=== PATIENT | female | born 1945 | race Caucasian/White ===

== ENCOUNTER 2017-01-25 19:56 | Inpatient (IN) | payer MEDICARE ==
[~2017-01-25] VITALS: Ht 167.6 cm; Wt 87.5 kg
--- NOTE | 2017-01-26 02:34 | ER ---
ADMIT: 01/25/2017 RM/LOC: 404 [facility] MR#: [id number] [address] [address] RAYA [address] [place] [address] [place] [address] Emergency Room Report SEX: F AGE: 71 : 1945 DATE: 01/25/2017 HISTORY OF PRESENT ILLNESS: The patient is a 71-year-old female, been battling chronic UTIs with multiple rounds of antibiotics for the past 30 days, just finished Cipro, continues to have urinary urgency, dysuria, and bilateral flank pain, left greater than right. Denies any nausea, vomiting, or hematuria. Prior history of multiple rounds of kidney stones with manipulations by Dr. Abdalla most recently. PAST MEDICAL HISTORY: ILLNESSES: Hypertension, kidney stones, chronic UTIs, depression, asthma, DJD, and peripheral vascular disease. OPERATIONS: Appendectomy, left carotid endarterectomy, bilateral total hip arthroplasties, kidney stones, and recent lumbar decompression for spinal stenosis. ALLERGIES: NONE. MEDICATIONS: None. SOCIAL HISTORY: . Nonsmoker. Nondrinker. No illicit drugs. FAMILY HISTORY: Negative per chart review. REVIEW OF SYSTEMS: Most recent urine culture on December 29, 2016, E. coli sensitive to everything. Complaining of bilateral anterior thigh pain since her most recent lumbar decompression for spinal stenosis followed closely by Orthopedics. Otherwise, negative for all other systems, illnesses, or operations. PHYSICAL EXAMINATION: VITAL SIGNS: Temp 100.2, pulse 104, respirations 18, BP 147/48, and SaO2 of 93% on room air. GENERAL: Nontoxic, non-diaphoretic without jaundice or icterus. HEENT: Normocephalic. No evidence of epistaxis, rhinorrhea, or otorrhea. NECK: Supple without lymphadenopathy or thyromegaly. CHEST: Clear. Breath sounds equal without rales, rhonchi, or wheeze. HEART: Regular rate and rhythm without murmur, gallop, or edema. ABDOMEN: Soft, nontender, nondistended without mass or megaly. Bowel sounds hypoactive. BACK: No CVA tenderness. EXTREMITIES: No evidence of Homans sign, synovitis, or dermatitis. NEURO: EOMI, PERRLA. No evidence of drift, dysarthria, or ataxia. MEDICAL DECISION MAKING: CT renal shows large left renal pelvis stone consistent with ball valve effect, minimal dilatation, no distal ureteral stones. Chest x-ray, no acute findings. WBC 13.3 with left shift. CRP 2.96. Lactic 2.1. Creatinine 1.2. Potassium 3.4. UA; 3+ blood and leukocyte esterase, 1385 wbc's with clumps, 239 rbc's. Troponin 0.091, magnesium 1.7, ADMIT: 01/25/2017 RM/LOC: 404 [facility] MR#: [id number] [address] [place] [address] RAYA JOHN [address] [place] [address] Emergency Room Report SEX: F AGE: 71 : 1945 phosphorus 1.2. Discussed case with Dr. Clifford, who agrees with Rocephin 2 g IV piggyback. EKG shows sinus rhythm without ST-T or Q-wave change. DIAGNOSES: 1. Left renal pelvis kidney stone associated with chronic urinary tract infection. 2. Recent lumbar decompression for spinal stenosis. 3. Degenerative joint disease status post bilateral total hip arthroplasties with chronic anterior thigh pain. 4. Peripheral vascular disease, status post left carotid endarterectomy. RECOMMENDATION: Admit inpatient telemetry for Dr. Clifford. ADMISSION/DISCHARGE CONDITION: Stable. The patient is a full code. Landen Lozano MD/ segun JOB #: [id number] CC: Adriana Ovalle MD, Attending Physician Adriana Ovalle MD, Family Physician Maxime Clifford MD
--- NOTE | 2017-01-26 15:44 | HP ---
ADMIT: 01/25/2017 RM/LOC: 404 [facility] MR#: [id number] [address] [address] SANDRA JOHN [address] [place] [address] [place] [address] History and Physical SEX: F AGE: 71 : 1945 DATE OF SERVICE: 01/25/2017 CHIEF COMPLAINT AND HISTORY OF PRESENT ILLNESS: Sandra presented to the emergency room last night with what sounds like chills. Also, she had a fever at home of 102. Also some burning, urgency, and some left-sided back pain. She has been fighting the back pain for some time, and she frankly thought it had some to do with her chronic back pain from her lumbar spinal stenosis. However, she has also been battling with urinary tract infections at [facility], last being treated with Cipro after in-office culture grew E. coli sensitive to Cipro in late December. She has had apparently several UTIs treated both by our office and previously by Dr. Gilmore. In the emergency room, she was found to have an elevated white count. For the back pain, they ordered a CT scan that showed a large renal pelvis calculus and what appeared to be some evidence of left pyelonephritis. Her urine was obviously infected. Although she was not in any visible respiratory distress, she has been having more cough in last couple of weeks which is dry. She has not had a cold. Her x- ray showed some atelectasis versus early infiltrate in the left base. Since admission, she has also had elevated lactate acid and elevated procalcitonin. Blood cultures and urine cultures are pending. PAST MEDICAL HISTORY: She has been new to our group since transferring care from Dr. Gilmore's office. Known chronic medical conditions include hypertension, obstructive sleep apnea, asthma, lumbar spinal stenosis, prior TIA, prior nephroureterolithiasis requiring multiple procedures, acid reflux, and vitamin B12 deficiency. OPERATIONS: She has had appendectomy, hemorrhoidectomy, bilateral total hip arthroplasties, carotid endarterectomy, multiple urologic procedures for recurrent stone disease, and recent lumbar decompression procedure because of her spinal stenosis. FAMILY HISTORY: Positive for coronary artery disease, breast cancer, diabetes, hypertension in various first-degree relatives. SOCIAL HISTORY: Smoker who quit over 25 years ago. No alcohol. She is , lives with her , employment status unknown. ALLERGIES: NONE. MEDICATIONS: Uncertain of her dosages but she is on: 1. Norvasc. 2. Zyrtec. 3. Singulair. 4. Prilosec. 5. Zoloft. 6. Vitamin B12. 7. Recent antibiotics either Bactrim or Cipro. REVIEW OF SYSTEMS: CONSTITUTIONAL: No chills and fever. ADMIT: 01/25/2017 RM/LOC: 404 [facility] MR#: [id number] [address] [address] SANDRA JOHN [address] [place] [address] History and Physical SEX: F AGE: 71 : 1945 GI: Nausea without vomiting. : As in the above history. CV: She will get occasional chest pain with activity, but she did have a stress test earlier this year ahead of her lumbar surgery and it was fine by her report. RESPIRATORY: Gets short of breath with exertion. She has a dry cough. She has sleep apnea and wears CPAP nightly. ENT: No acute complaints. She wears dentures. EYES: No acute complaints. PSYCH: Chronic depression unchanged. NEURO: She has some leg numbness from her spinal stenosis. Otherwise negative. HEMATOLOGIC: No history of bleeding requiring transfusion, and no history of blood clots. PHYSICAL EXAMINATION: GENERAL: She is a pleasant alert female currently appears comfortable in no acute distress. VITAL SIGNS: Most recently, temp 96.9, pulse 66, respirations 17, BP 116/58, O2 96% sat. She is wearing oxygen at low flow rate. HEENT: She is edentulous. Oral mucous membranes are moist. No nasal discharge. Hearing satisfactory. Pupils equal, reactive to light. Sclerae are not icteric. NECK: No masses or tenderness. Carotid endarterectomy scar on the left. No venous distention. No thyromegaly. HEART: Regular rhythm. I do not hear a murmur. LUNGS: Some scattered rhonchi. Decreased breath sounds in the left posterior, clear anteriorly. BREASTS: Not examined. ABDOMEN: Nontender. No masses felt, no guarding, no rebound, no organomegaly. PELVIC/RECTAL: Not performed. EXTREMITIES: Upper extremities grossly normal. Lower extremities, arthritic changes in her knees. No significant edema in her lower extremities. Lower extremities are warm to touch. SKIN: No rashes. NEURO: Grossly intact. PSYCH: She is not overtly anxious or depressed. IMPRESSION: 1. Acute sepsis. 2. Urinary tract infection with left pyelonephritis. 3. Large left renal pelvic calculus. Certainly could be the nidus of her recurrent infections. 4. Left lower lobe atelectasis less likely acute pneumonia. 5. Mild renal insufficiency acute versus chronic. 6. Mild increased troponin likely secondary, but we will monitor. 7. Chronic hypertension. 8. Chronic asthma. ADMIT: 01/25/2017 RM/LOC: 404 [facility] MR#: [id number] [facility] [address] [address] SANDRA JOHN [address] [place] [address] History and Physical SEX: F AGE: 71 : 1945 9. Obstructive sleep apnea. 10.Lumbar spinal stenosis. 11.Acid reflux. PLAN: We treated with IV fluids. We will broaden antibiotic coverage in light of the still small concern that she also has pneumonia. We will switch her from Rocephin. She has already received Zosyn and Zithromax. This provided adequate coverage for both areas but once again, I think the primary problem is urinary tract. Once again, Urology has also been consulted, and we will adjust treatment as clinical course indicates the need since I do not know when she might have urologic procedure. I will withhold Lovenox for the time being. Maxime Clifford MD/ segun JOB #: [id number] CC: Adriana Ovalle, Attending Physician Adriana Ovalle, Family Physician
--- NOTE | 2017-02-08 07:43 | DS ---
ADMIT: 01/25/2017 RM/LOC: 404 [facility] MR#: [id number] [address] [address] RAYA JOHN [address] [place] [address] [place] [address] Discharge Summary SEX: F AGE: 71 : 1945 ADMISSION DATE: 01/25/2017 DISCHARGE DATE: 01/29/2017 FINAL DIAGNOSES: 1. Sepsis with urinary tract infection and left pyelonephritis. 2. Left renal stone. 3. Obstructive sleep apnea, chronic. 4. Hypertension, chronic. 5. Spinal stenosis, chronic, with chronic back pain. 6. Atelectasis of the lungs. HOSPITAL COURSE: This 71-year-old came in with fever, chills, and high white count. She had findings of urinary tract infection with pyuria and a kidney stone noted on the left, as well as left lower lobe atelectasis, which was concerning for an early pneumonia. She was started on IV Zosyn and Zithromax. Her urine grew E. coli, sensitive to multiple antibiotics. Her lungs cleared with chest x-ray looking normal by the second day. Dr. Abdalla saw her for Urology and made plans for the followup on February 01. His plan is to clear infection as much as possible and then probably have her undergo lithotripsy. By 01/27, she was feeling better with no more fever. She was drinking well. Blood pressures had ranged down a little bit, so Dr. Clifford had held her Norvasc. By the , however, blood pressures were starting to climb again, so he resumed that medicine. By 01/29, she is feeling much better. She has no nausea. She still has a little bit of cough. She has backache, but cannot really tell if that is particularly different than her usual achiness. She denies any sharp or severe flank pain. Dismissal will be after she finishes her morning IV infusion of Zosyn. On dismissal, she will take: 1. Claritin 10 mg daily. ADMIT: 01/25/2017 RM/LOC: 404 [facility] MR#: [id number] [address] [address] RAYA JOHN [address] [place] [address] Discharge Summary SEX: F AGE: 71 : 1945 2. Norvasc 10 mg daily. 3. Omeprazole 20 mg daily. 4. Singulair 10 mg daily. 5. Zoloft 100 mg daily. 6. She also has p.r.n. Tylenol for pain. 7. She will take Cipro beginning on the evening of 01/29/2017. Order is for Cipro 500 mg b.i.d. through February 03. She will follow up with Dr. Abdalla next week as planned on February 01 and discuss ongoing antibiotic treatment vs. ESWL with him. Regarding her recurrent kidney stones, she must stop drinking cola and drink much more water. She said she is aware of that. Neha Greenberg MD/ kaelyn JOB #: [id number] CC: Maxime Clifford MD, Attending Physician Adriana Ovalle MD, Family Physician
--- NOTE | 2017-02-08 12:28 | CO ---
ADMIT: 01/25/2017 RM/LOC: 404 [facility] MR#: [id number] [address] [address] RAYA KLEIN [address] [place] [address] [place] [address] Consultation SEX: F AGE: 71 : 1945 DATE OF CONSULTATION: 01/26/2017 ATTENDING PHYSICIAN: Adriana Ovalle CONSULTING PHYSICIAN: Jacque Abdalla MD PROBLEM: Left renal calculus. HISTORY OF PRESENT ILLNESS: This 71-year-old female, underwent back surgery in April of last year. Since then, she has had complaint of some mild left flank pain. Yesterday, the pain intensified and she was having some fever with mild chilling, but no gross hematuria at which time, a renal colic CT demonstrated a large stone within the left renal pelvis. She does have a history of stone disease dating back several years ago, having undergone extracorporeal shockwave lithotripsy previously. She has had no nausea or vomiting. MEDICATIONS: She is on Nitrostat 0.4 mg sublingual p.r.n. ALLERGIES: NONE. OPERATIONS: As previously stated. REVIEW OF SYSTEMS: She denies any essential hypertension or diabetes mellitus. There is some mild history of atherosclerotic cardiovascular disease. FAMILY HISTORY: Negative for urologic problems. SOCIAL HISTORY: She does not smoke or drink. PHYSICAL EXAMINATION: GENERAL: This is a healthy appearing, 71-year-old, in no acute distress. HEENT: Unremarkable. NECK: Supple without adenopathy. ABDOMEN: Soft, mildly obese with mild tenderness in left upper quadrant, however no guarding or rigidity was noted. No masses palpable. EXTREMITIES: Had full range of motion without deformity. NEUROLOGICAL: She is grossly intact. ASSESSMENT: Left renal calculus, which is most likely the cause for her urinary tract infection. ADMIT: 01/25/2017 RM/LOC: 404 [facility] MR#: [id number] 2620 [facility] [address] [place], [place] [address] RAYA KLEIN [address] [place] [address] [place] [address] Consultation SEX: F AGE: 71 : 1945 PLAN: I would continue antibiotic therapy as initiated. Once she is infection free, she will need to have her stone treated. I would continue her on antibiotic therapy until her stone is treated just for adequate coverage. She will probably relapse with recurrent infection, should her antibiotics be discontinued prior to treatment. She does have an appointment to see me next week and we will keep that appointment. Thank you for allowing us to assist in the care of Ms. Klein. We will be available should further evaluation and treatment be necessary. R Saw Abdalla MD/ segun JOB #: [id number] CC: Adriana Ovalle, Attending Physician Adriana Ovalle, Family Physician Maxime Clifford MD
== END 2017-01-29 13:14 | disposition home or self-care (01) | DRG 872 ==
LOC: ER 19:56 → 4PCU 21:40
PROVIDERS: ADMIT Family Medicine
DX: A41.9 Sepsis, unspecified organism (principal); I10 Essential (primary) hypertension; N13.6 Pyonephrosis; J98.11 Atelectasis; B96.20 Unspecified Escherichia coli [E. coli] as the cause of diseases classified elsewhere; F32.9 Major depressive disorder, single episode, unspecified; M48.06 Spinal stenosis, lumbar region; E53.8 Deficiency of other specified B group vitamins; J45.909 Unspecified asthma, uncomplicated; M19.90 Unspecified osteoarthritis, unspecified site; I73.9 Peripheral vascular disease, unspecified; G47.33 Obstructive sleep apnea (adult) (pediatric); K21.9 Gastro-esophageal reflux disease without esophagitis; Z86.73 Personal history of transient ischemic attack (TIA), and cerebral infarction without residual deficits; Z87.442 Personal history of urinary calculi; Z96.643 Presence of artificial hip joint, bilateral; Z82.49 Family history of ischemic heart disease and other diseases of the circulatory system; Z87.891 Personal history of nicotine dependence